=== PATIENT | female | born 1995 | race Two or more races ===

== ENCOUNTER 2021-11-19 12:33 | Emergency (ER) | payer OTHER ==
[~2021-11-19] VITALS: Ht 162.6 cm; Wt 52.2 kg
[2021-11-19 12:38] VITALS: BP 108/71
--- NOTE | 2021-11-19 13:15 | PHYS DOC ---
Past Medical History Past Surgical History: No Surgical History General Adult EDM: Chief Complaint: FLU SYMPTOM HPI: HPI: Patient is a 26 year old female who presents with 12-week female whose son was diagnosed with the flu a couple days ago. She states she is now having nasal congestion, cough, postnasal drip causing sore throat, headache. She states she has not been running a fever. She does have a appointment with her OB doctor this week. Patient denies fever, chest pain, shortness of breath, dizziness, nausea, vomiting, diarrhea, urinary symptoms, back pain, vision change, numbness or tingling, focal weakness. Review of Systems: Review of Systems: Constitutional: Denies fever or chills. [] Eyes: Denies change in visual acuity. [] HENT: + nasal congestion or +sore throat. [] Respiratory: Denies cough or shortness of breath. [] Cardiovascular: Denies chest pain or edema. [] GI: Denies abdominal pain, nausea, vomiting, bloody stools or diarrhea. [] : Denies dysuria. [] Musculoskeletal: Denies back pain or joint pain. [] Integument: Denies rash. [] Neurologic: + headache, denies focal weakness or sensory changes. [] Endocrine: Denies polyuria or polydipsia. [] Lymphatic: Denies swollen glands. [] Psychiatric: Denies depression or anxiety. [] Heart Score: C/O Chest Pain: No Allergies: Allergies: Allergies Coded Allergies Type Severity Reaction Last Updated Verified No Known Drug Allergies 11/19/21 No Physical Exam: PE: Constitutional: Well developed, well nourished, no acute distress, non-toxic appearance. [] HENT: Normocephalic, atraumatic, bilateral external ears normal, oropharynx moist, no oral exudates, nose normal. Nasal congestion. Postnasal drip. [place] midline. No trismus. [] Eyes: PERRLA, EOMI, conjunctiva normal, no discharge. [] Neck: Normal range of motion, no tenderness, supple, no stridor. [] Cardiovascular:Heart rate regular rhythm, no murmur [] Lungs & Thorax: Bilateral breath sounds clear to auscultation [] Abdomen: Bowel sounds normal, soft, no tenderness, no masses, no pulsatile masses. [] Skin: Warm, dry, no erythema, no rash. [] Back: No tenderness, no CVA tenderness. [] Extremities: No tenderness, no cyanosis, no clubbing, ROM intact, no edema. [] Neurologic: Alert and oriented X 3, normal motor function, normal sensory function, no focal deficits noted. [] Psychologic: Affect normal, judgement normal, mood normal. [] Current Patient Data: Vital Signs: Vital Signs Date Time Temp Pulse Resp B/P (MAP) Pulse Ox O2 Delivery O2 Flow Rate FiO2 11/19/21 12:38 98.1 101 18 108/71 (83) 98 Room Air 98.1 EKG: EKG: [] Radiology/Procedures: Radiology/Procedures: [] Course & Med Decision Making: Course & Med Decision Making Pertinent Labs and Imaging studies reviewed. (See chart for details) See HPI. Alert and oriented x4. Ambulatory with steady gait. Speaks in full clear sentences. Abdomen soft and nontender. Skin pink warm and dry. No rashes. She denies any current abdominal pain or vaginal bleeding or abnormal vaginal discharge. Afebrile. Vital signs are within normal limits. Throat is pink without exudates or swelling. No trismus. Uvula midline. Lungs are clear to auscultation all lobes. Nasal congestion with postnasal drip seen. Patient is educated that she can take a Tylenol, use nasal sprays and use cough drops. Patient will follow up with her OB doctor as scheduled. [] Liliana Disclaimer: Dragon Disclaimer: This electronic medical record was generated, in whole or in part, using a voice recognition dictation system. Departure Departure Impression: Primary Impression: Influenza Disposition: 01 HOME / SELF CARE / HOMELESS Condition: STABLE Referrals: NO PCP (PCP) Patient Instructions: Influenza, Adult Additional Instructions: Follow-up with your OB doctor as you are scheduled. Take Tylenol and use nasal sprays. You can also take Benadryl. Return to the hospital for severe shortness of breath or you cannot keep down any kind of fluids. DANIEL FERNÁNDEZ APRN Nov 19, 2021 13:15
[2021-11-19 13:42] LABS: INFLUENZA A PATIENT POSITIVE (NEGATIVE); INFLUENZA B PATIENT NEGATIVE (NEGATIVE)
== END 2021-11-19 13:45 | disposition home or self-care (01) ==
LOC: ER 12:33
DX: O26.891 Other specified pregnancy related conditions, first trimester (principal); J10.1 Influenza due to other identified influenza virus with other respiratory manifestations; Z20.822 Contact with and (suspected) exposure to COVID-19; Z3A.12 12 weeks gestation of pregnancy
CPT/HCPCS: 87428; 99283